=== PATIENT | female | born 1975 | race American Indian/Alaskan Native ===

== ENCOUNTER 2019-05-18 09:19 | Emergency (ER) | payer SELFPAY ==
--- NOTE | 2019-05-18 11:21 | Emergency Department Report ---
Chief Complaint: High BP Stated Complaint: BLOOD PRESSURE LOW/DIZZY Time Seen by Provider: 05/18/19 10:11 - HPI History of Present Illness: Patient is a 43-year-old female who is here stating that she's had issues with her blood pressure last several days. Patient states she's had some mild dizziness for 3 days and started checking her blood pressure at home. Patient states last night her blood pressure was 190/110. This morning she states his systolic was 100. Patient denies any shortness of breath chest pain focal neurological deficits. Patient states is been no cough, congestion nausea vomiting. Patient just had her blood pressure regimen changed one week ago. - ROS Review of Systems: All other systems reviewed are negative - Exam Vital Signs: Vital Signs 05/18/19 09:27 Temperature 98.4 F Pulse Rate 84 Respiratory 16 Rate Blood Pressure 119/74 [Left] O2 Sat by Pulse 100 Oximetry Physical Exam: Patient alert and oriented 3. Heart tones are normal. Lungs are clear to auscultation. Abdomen soft nontender. Patient moves all extremities with 5 out of 5 strength. MSE screening note: Focused history and physical exam performed. Due to findings the following was ordered: ED Medical Decision Making - Medical Decision Making This and has a blood pressure within normal limits. Emergency department. Patient did have orthostatics done which are normal as well. Patient is not medical emergency at this time and she should follow-up with her primary doctor to see if there is some regimen changes that they would recommend. Blood pressure regimen has not changed here in the emergency department. ED Disposition for MSE Clinical Impression: Blood pressure alteration Disposition: Z- MED SCREENING EXAM-LEFT Is pt being admited?: No Does the pt Need Aspirin: No Condition: Stable Referrals: ESSIE ORTEZ MD [Primary Care Provider] - 3-5 Days Forms: Work/School Release Form(ED) Time of Disposition: 11:20
[2019-05-18 11:50] VITALS: BP 119/77
== END 2019-05-18 11:48 | disposition left against medical advice (07) ==
LOC: ED 09:19
DX: R03.0 Elevated blood-pressure reading, without diagnosis of hypertension (principal); Z88.6 Allergy status to analgesic agent
CPT/HCPCS: 99282

== ENCOUNTER 2019-07-25 20:46 | Emergency (ER) | payer MEDICAID ==
--- NOTE | 2019-07-25 21:57 | Event Note ---
ED Screening Note Date of service: 07/25/19 Time: 21:52 ED Screening Note: 43 y ofemale presents with upper abdominal pain x 3 days states no BM x 12 days and no passing gas no BM with enema, miralax and laxative otc This initial assessment/diagnostic orders/clinical plan/treatment(s) is/are lema bject to change based on patients health status, clinical progression and re- assessment by fellow clinical providers in the ED. Further treatment and workup at subsequent clinical providers discretion. Patient/guardian urged not to elope from the ED as their condition may be serious if not clinically assessed and managed. Initial orders include: labs abd xr
[2019-07-25 22:33] LABS: Basophils % (Auto) 0.9 % (0.0-1.8); Eosinophils # (Auto) 0.2 K/mm3 (0.0-0.4); Hematocrit 36.2 % (30.3-42.9); Hemoglobin 12.4 gm/dl (10.1-14.3); Lymphocytes # (Auto) 1.9 K/mm3 (1.2-5.4); Lymphocytes % (Auto) 35.4 % (13.4-35.0); Mean Corpuscular HGB Conc 34 % (30-34); Mean Corpuscular Volume 84 fl (79-97); Monocytes # (Auto) 0.6 K/mm3 (0.0-0.8); Monocytes % (Auto) 11.6 % (0.0-7.3); Platelet Count 258 K/mm3 (140-440); Red Blood Count 4.32 M/mm3 (3.65-5.03); Red Cell Distribution Width 13.6 % (13.2-15.2)
[2019-07-25 22:50] LABS: Alanine Aminotransferase 8 units/L (7-56); Albumin 3.6 g/dL (3.9-5)
[2019-07-25 23:02] LABS: Bilirubin,Direct < 0.2 mg/dL (0-0.2)
[2019-07-25 23:52] LABS: Bacteria,Urine 4+ /HPF (Negative); Bilirubin,Urine NEG (Negative); Blood,Urine NEG (Negative); Color,Urine Yellow (Yellow); Mucus,Urine FEW /HPF; Protein,Urine <15 mg/dL mg/dL (Negative); Urobilinogen,Urine < 2.0 mg/dL (<2.0)
--- NOTE | 2019-07-26 00:39 | Emergency Department Report ---
ED Abdominal Pain HPI - General Chief Complaint: Abdominal Pain Stated Complaint: ABD PAIN Time Seen by Provider: 07/25/19 21:51 Source: patient Mode of arrival: Ambulatory Limitations: No Limitations - History of Present Illness Initial Comments: Patient is 43 years old female with no significant past medical history. Patient presented to the ER complaining of abdominal pain for the last 3 days. Patient describes pain as diffuse, crampy with no radiation. Pain associated with constipation for the last 3 days. Denied any fever or chills. Patient denied any nausea or vomiting. Patient had history of hernia repair in 2004 and cholecystectomy last year. MD Complaint: abdominal pain -: days(s) Location: diffuse Radiation: none Migration to: no migration Severity scale (0 -10): 7 - Related Data Allergies Allergy/AdvReac Type Severity Reaction Status Date / Time ketorolac [From Toradol] Allergy Hives Verified 05/18/19 09:21 morphine Allergy Itching Verified 07/26/19 01:32 NSAIDS (Non-Steroidal Allergy Unknown Verified 07/26/19 01:32 Anti-Inflamma ED Review of Systems ROS: Stated complaint: ABD PAIN Other details as noted in HPI Comment: All other systems reviewed and negative Constitutional: denies: chills, fever Respiratory: denies: cough Cardiovascular: denies: chest pain, palpitations Gastrointestinal: abdominal pain, constipation. denies: nausea, vomiting, diarrhea, hematemesis, melena, hematochezia Genitourinary: denies: urgency Musculoskeletal: denies: back pain Neurological: denies: headache, weakness, numbness, paresthesias, confusion, abnormal gait ED Past Medical Hx - Past Medical History Previous Medical History?: Yes Hx Hypertension: Yes Hx of Cancer: Yes (L breast) Additional medical history: LUPUS. L lumpectomy 02/2019, cancer free at this time - Surgical History Past Surgical History?: Yes Hx Cholecystectomy: Yes Additional Surgical History: HERNIA/ ECTOPIC PREG - Social History Smoking Status: Former Smoker Substance Use Type: None ED Physical Exam - General Limitations: No Limitations General appearance: alert, in no apparent distress - Head Head exam: Present: atraumatic, normocephalic, normal inspection - Eye Eye exam: Present: normal appearance - ENT ENT exam: Present: normal exam, normal orophraynx, mucous membranes moist - Neck Neck exam: Present: normal inspection, full ROM. Absent: tenderness, me ningismus, lymphadenopathy, thyromegaly - Respiratory Respiratory exam: Present: normal lung sounds bilaterally - Cardiovascular Cardiovascular Exam: Present: regular rate, normal rhythm, normal heart sounds - GI/Abdominal GI/Abdominal exam: Present: soft, normal bowel sounds. Absent: distended, tenderness, guarding, rebound, rigid, organomegaly, mass, bruit, pulsatile mass, hernia - Extremities Exam Extremities exam: Present: normal inspection, full ROM, normal capillary refill. Absent: tenderness, pedal edema, joint swelling, calf tenderness - Back Exam Back exam: Present: normal inspection, full ROM. Absent: CVA tenderness (R), CVA tenderness (L), muscle spasm, paraspinal tenderness, vertebral tenderness - Neurological Exam Neurological exam: Present: alert, oriented X3, CN II-XII intact, normal gait, reflexes normal - Psychiatric Psychiatric exam: Present: normal mood - Skin Skin exam: Present: warm, intact, normal color ED Course Vital Signs 07/25/19 07/25/19 07/26/19 21:52 23:59 01:52 Temperature 98.6 F 98.5 F Pulse Rate 76 68 Respiratory 18 13 16 Rate Blood Pressure 127/80 Blood Pressure 122/70 [Left] O2 Sat by Pulse 99 100 Oximetry ED Medical Decision Making - Lab Data Result diagrams: 07/25/19 22:13 - Radiology Data Radiology results: report reviewed Referring Physician: SOPHIA CORNELIUS Patient Name: SWETHA CORLEY Date of : 1975 Sex: Female Report Date: 2019-07-26 Report Status: Finalized Findings [address] [address] Cat Scan Report Signed Patient: SWETHA CORLEY MR #: [id number] : 1975 Acct:[id number] Age/Sex: 43 / F ADM Date: 07/25/19 Loc: ED Attending Dr: Ordering Physician: ZA SHANE Date of Service: 07/25/19 Procedure(s): CT abdomen pelvis wo con Accession Number(s): [id number] cc: ZA SHANE CT ABDOMEN AND PELVIS WITHOUT CONTRAST HISTORY: Mid and lower abdominal pain. COMPARISON: None TECHNIQUE: Routine abdominal and pelvic CT exam performed without contrast. Lack of intravenous contrast limits evaluation of the vascular and solid organs.. All CT scans at this location are performed using CT dose reduction for ALARA by means of automated exposure control. FINDINGS: CT ABDOMEN: Lung Bases: No significant abnormality. Liver: No significant abnormality. Biliary: Gallbladder is surgically absent. Spleen: No significant abnormality. Unenlarged. Pancreas: No significant abnormality. Adrenals: No significant abnormality. Kidneys: No significant abnormality. Lymphatics: No lymphadenopathy. Vasculature: No significant abnormality. Bowel/Peritoneum: No significant abnormality. No free air. No free fluid. Normal appendix. CT PELVIC: : No significant abnormality. Lymphatics: No lymphadenopathy. Osseous Structures: No aggressive appearing osseous lesions. Additional Findings: None IMPRESSION: 1. No acute findings in the abdomen and pelvis. 2. Previous cholecystectomy. Signer Name: Nate Levine MD Signed: 07/26/2019 2:09 AM Workstation Name: [id number] Transcribed By: SOTO Dictated By: Nate Levine MD Electronically Authenticated By: Nate Levine MD Signed Date/Time: 07/26/19208 DD/ 7 TD/TT: - Medical Decision Making Patient is 43 years old female with no significant past medical history. Patient presented to the ER complaining of abdominal pain for the last 3 days. Patient describes pain as diffuse, crampy with no radiation. Pain associated with constipation for the last 3 days. Denied any fever or chills. Patient denied any nausea or vomiting. Patient had history of hernia repair in 2004 and cholecystectomy last year. Patient labs reviewed and is unremarkable. CT abdomen and pelvis is unremarkable. Patient advised to follow-up with her primary care physician in the next 2-3 days and return to the ER if symptoms are not improved. Critical care attestation.: If time is entered above; I have spent that time in minutes in the direct care of this critically ill patient, excluding procedure time. ED Disposition Clinical Impression: Abdominal pain, Constipation, UTI (urinary tract infection) Disposition: TO HOME OR SELFCARE Is pt being admited?: No Condition: Stable Instructions: Abdominal Pain (ED), Urinary Tract Infection in Women (ED), Constipation (ED) Referrals: PRIMARY CAREMD [Primary Care Provider] - 3-5 Days [facility] [Provider Group] - 3-5 Days
[2019-07-26] MEDS ORDERED: MORPHINE 4 MG/1 ML INJ ONE ×2 (01:29→01:46)
[2019-07-26] MEDS ORDERED: ONDANSETRON 4 MG/2 ML INJ ONE ×2 (01:29→01:46)
[2019-07-26] MEDS ORDERED: MORPHINE 4 MG/1 ML INJ IM ONE (01:50)
[2019-07-26] MEDS ORDERED: ONDANSETRON 4 MG/2 ML INJ IM ONE (01:50)
--- NOTE | 2019-07-26 02:14 | Cat Scan Report ---
CT ABDOMEN AND PELVIS WITHOUT CONTRAST HISTORY: Mid and lower abdominal pain. COMPARISON: None TECHNIQUE: Routine abdominal and pelvic CT exam performed without contrast. Lack of intravenous cont rast limits evaluation of the vascular and solid organs.. All CT scans at this location are performed using CT dose reduction for ALARA by means of automated exposure control. FINDINGS: CT ABDOMEN: Lung Bases: No significant abnormality. Liver: No significant abnormality. Biliary: Gallbladder is surgically absent. Spleen: No significant abnormality. Unenlarged. Pancreas: No significant abnormality. Adrenals: No significant abnormality. Kidneys: No significant abnormality. Lymphatics: No lymphadenopathy. Vasculature: No significant abnormality. Bowel/Peritoneum: No significant abnormality. No free air. No free fluid. Normal appendix. CT PELVIC: : No significant abnormality. Lymphatics: No lymphadenopathy. Osseous Structures: No aggressive appearing osseous lesions. Additional Findings: None IMPRESSION: 1. No acute findings in the abdomen and pelvis. 2. Previous cholecystectomy. Signer Name: Nate Levine MD Signed: 07/26/2019 2:09 AM Workstation Name: [email or web address]
[2019-07-26 02:50] VITALS: BP 112/71
== END 2019-07-26 02:51 | disposition home or self-care (01) ==
LOC: ED 20:46
DX: K59.00 Constipation, unspecified (principal); N39.0 Urinary tract infection, site not specified; I10 Essential (primary) hypertension; Z87.891 Personal history of nicotine dependence; Z90.49 Acquired absence of other specified parts of digestive tract; Z85.3 Personal history of malignant neoplasm of breast; Z98.890 Other specified postprocedural states; Z88.6 Allergy status to analgesic agent; Z88.8 Allergy status to other drugs, medicaments and biological substances
CPT/HCPCS: 36415; 74176; 80076; 81001; 84703; 85025; 96372; 99283; J2270; J2405

== ENCOUNTER 2020-05-18 21:43 | Emergency (ER) | payer MEDICAID ==
[2020-05-18 21:52] VITALS: BP 136/81
== END 2020-05-18 22:20 | disposition left against medical advice (07) ==
LOC: ED 21:43
DX: M25.571 Pain in right ankle and joints of right foot (principal); Z53.21 Procedure and treatment not carried out due to patient leaving prior to being seen by health care provider